=== PATIENT | male | born 1965 | race Caucasian/White ===

== ENCOUNTER 2016-10-27 14:39 | Emergency (ER) | payer SELFPAY ==
[2016-10-27 14:50] VITALS: BP 115/66; PULSE 64; RESP 16; TEMP 98; O2SAT 100
--- NOTE | 2016-10-27 15:06 | ED PDOC ---
Upper Extremity Pain/Injury Time Seen by Provider: 10/27/16 15:00 Chief Complaint (Nursing): Upper Extremity Problem/Injury Chief Complaint (Provider): Upper Extremity Problem/Injury History Per: Patient History/Exam Limitations: no limitations Onset/Duration Of Symptoms: Days (x3 days) Current Symptoms Are (Timing): Still Present Additional Complaint(s): 51 y/o male presents to the emergency department with a complaint of left shoulder pain radiating down the left arm and left rib pain on palpation and deep breaths status post fall from a 12ft ladder during work on Monday, 2016. Associated with mild dizziness. Denies cough. Past Medical History Reviewed: Historical Data, Nursing Documentation, Vital Signs Vital Signs: Last Vital Signs Temp 98.0 F 10/27/16 14:49 Pulse 64 10/27/16 14:49 Resp 16 10/27/16 14:49 BP 115/66 10/27/16 14:49 Pulse Ox 100 10/27/16 14:49 - Medical History PMH: No Chronic Diseases - Surgical History Surgical History: No Surg Hx - Family History Family History: States: Unknown Family Hx - Home Medications Home Medications: Ambulatory Orders Medication Instructions Recorded No Known Home Med 10/27/16 - Allergies Allergies/Adverse Reactions: Allergies Allergy/AdvReac Type Severity Reaction Status Date / Time No Known Allergies Allergy Verified 10/27/16 14:49 Review of Systems ROS Statement: Except As Marked, All Systems Reviewed And Found Negative Respiratory: Negative for: Cough Musculoskeletal: Positive for: Shoulder Pain (Left), Arm Pain (Left), Other ( Left rib pain) Neurological: Positive for: Dizziness (Mild) Physical Exam - Reviewed Nursing Documentation Reviewed: Yes Vital Signs Reviewed: Yes - Physical Exam Appears: Positive for: Non-toxic, No Acute Distress Head Exam: Positive for: ATRAUMATIC, NORMOCEPHALIC Skin: Positive for: Normal Color, Warm, Dry Extremity: Positive for: Normal ROM (Normal pronation and supination of the left arm. ), Other (Neurovascularly nerves intact. ). Negative for: Tenderness (No AC tenderness. No scapular, midline, C-spine, or clavicle tenderness. ) Neurologic/Psych: Positive for: Alert, Oriented - ECG O2 Sat by Pulse Oximetry: 100 (RA) Pulse Ox Interpretation: Normal Medical Decision Making Medical Decision Making: Time: 15:00 Initial impression: Possible Rib contusion Initial plan: --Ribs Left and PA Chest (RAD) --Revaluation xray: hows hiatial hernia, no visibl Fx noted to ribs. howeer due to injury from 12 ft lader and pain with inspiration will give incentive spirometer an advise to f.u with pmd PT comfortable in ED stable VS and well appearing. Scribe Attestation: Documented by Arabella Fuentes, acting as a scribe for Dalia Alicae PA-C. Provider Scribe Attestation: All medical record entries made by the Scribe were at my direction and personally dictated by me. I have reviewed the chart and agree that the record accurately reflects my personal performance of the history, physical exam, medical decision making, and the department course for this patient. I have also personally directed, reviewed, and agree with the discharge instructions and disposition. Disposition - Clinical Impression Clinical Impression: Rib contusion - Patient ED Disposition Is Patient to be Admitted: No Counseled Patient/Family Regarding: Studies Performed, Diagnosis, Need For Followup - Disposition Referrals: [facility] [Outside] [facility] [Outside] Disposition: Routine/Home Disposition Time: 16:15 Condition: STABLE Instructions: Hiatal Hernia (ED), Rib Contusion (ED) Forms: [facility] ED School/Work Excuse Print Language: FRENCH
--- NOTE | 2016-10-27 16:58 | RAD ---
PROCEDURE: Radiographs of the Chest and Left Ribs. HISTORY: pain in rib after fall injury COMPARISON: 10/30/2012.. TECHNIQUE: Frontal radiograph of the chest and multiple oblique radiographs of the left ribs were obtained. FINDINGS: LEFT RIBS: No fracture or focal lesion visualized. LUNGS: Clear. PLEURA: No pneumothorax or pleural fluid. CARDIOVASCULAR: Normal sized heart. No pulmonary vascular congestion. OTHER FINDINGS: None. IMPRESSION: Unremarkable radiographs of the chest and left ribs. No left rib fracture.
== END 2016-10-27 16:25 | disposition home or self-care (01) ==
LOC: H.ER 14:39
DX: S20.219A Contusion of unspecified front wall of thorax, initial encounter (principal); W11.XXXA Fall on and from ladder, initial encounter; Y99.0 Civilian activity done for income or pay

== ENCOUNTER 2016-11-15 10:47 | Observation (INO) | payer SELFPAY ==
[2016-11-15 11:07] VITALS: BMI 25.9
--- NOTE | 2016-11-15 13:10 | ED PDOC ---
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 He reports mild shortness of breath but denies nausea or vomit. Nothing makes it better or worse. He has never had this before. Reports pain was initially moderate and has remained moderate. Describes it as sharp. Past Medical History Reviewed: Historical Data, Nursing Documentation Vital Signs: Last Vital Signs Temp 97.8 F 11/15/16 11:07 Pulse 50 L 11/15/16 13:38 Resp 19 11/15/16 11:07 BP 129/67 11/15/16 11:07 Pulse Ox 99 11/15/16 13:18 - Medical History PMH: No Chronic Diseases - Surgical History Surgical History: No Surg Hx - Family History Family History: States: Unknown Family Hx - Social History Current smoker - smoking cessation education provided: No Alcohol: None Drugs: Denies - Home Medications Home Medications: Ambulatory Orders Medication Instructions Recorded No Known Home Med 10/27/16 - Allergies Allergies/Adverse Reactions: Allergies Allergy/AdvReac Type Severity Reaction Status Date / Time No Known Allergies Allergy Verified 10/27/16 14:49 Review of Systems ROS Statement: Except As Marked, All Systems Reviewed And Found Negative Cardiovascular: Positive for: Chest Pain Gastrointestinal: Negative for: Nausea, Vomiting Musculoskeletal: Positive for: Back Pain Physical Exam - Reviewed Nursing Documentation Reviewed: Yes Vital Signs Reviewed: Yes - Physical Exam Appears: Positive for: Well, Non-toxic, No Acute Distress Head Exam: Positive for: ATRAUMATIC, NORMAL INSPECTION, NORMOCEPHALIC Skin: Positive for: Warm, Dry Eye Exam: Positive for: PERRL, Other (Sclera are white) Neck: Positive for: Supple Cardiovascular/Chest: Positive for: Regular Rate, Rhythm Respiratory: Positive for: Normal Breath Sounds. Negative for: Rales, Rhonchi, Wheezing Gastrointestinal/Abdominal: Positive for: Normal Exam, Soft. Negative for: Tenderness Extremity: Positive for: Calf Tenderness, Swelling - Laboratory Results Result Diagrams: 11/15/16 13:30 11/15/16 13:30 - ECG ECG: Positive for: Interpreted By Me, Viewed By Me ECG Rhythm: Positive for: Sinus Bradycardia. Negative for: ST/T Changes Interpretation Of ECG: T wave inversion in V5. No ischemia. Rate: 44 O2 Sat by Pulse Oximetry: 99 (RA) Pulse Ox Interpretation: Normal - Radiology X-Ray: Interpreted by Me X-Ray Interpretation: No Acute Disease - Progress ED Course And Treament: willl admit to tele obs Re-evaluation Time: 15:30 Condition: Improved Medical Decision Making Medical Decision Makin EKG, CXR, Labs ordered. Disposition - Clinical Impression Clinical Impression: Chest pain - Patient ED Disposition Is Patient to be Admitted: Yes Counseled Patient/Family Regarding: Studies Performed, Diagnosis, Need For Followup - Disposition Disposition Time: 16:38 Condition: STABLE - Pt Status Changed To: Hospital Disposition Of: Observation - POA Present On Arrival: None Additional Comments - Additional Comments Additional Comments: Scribe Attestation Documented by Jose Manuel Banks acting as a scribe for Rohit Peralta MD. Provider Attestation All medical record entries made by the Scribe were at my direction and personally dictated by me. I have reviewed the chart and agree that the record accurately reflects my personal performance of the history, physical exam, medical decision making, and the department course for this patient. I have also personally directed, reviewed, and agree with the discharge instructions and disposition
[2016-11-15 13:55] LABS: BASO % 0.7 % (0.0-2.0); EOS # 0.5 K/uL (0.0-0.7); EOS % 6.9 % (0.0-4.0); HEMATOCRIT 45.3 % (35.0-51.0); LYMPH % 30.5 % (20.0-40.0); MEAN CELL VOLUME 90.4 fl (80.0-94.0); MEAN CORPUSCULAR HEMOGLOBIN 29.7 pg (27.0-31.0); MEAN CORPUSCULAR HGB CONC 32.8 g/dL (33.0-37.0); MONO # 0.6 K/uL (0.0-0.8); MONO % 8.8 % (0.0-10.0); NEUT # 3.5 K/uL (1.8-7.0); NEUT % 53.1 % (50.0-75.0); NRBC % 0.1 % (0.0-0.0); RED CELL DISTRIBUTION WIDTH 13.7 % (11.5-14.5); WHITE BLOOD COUNT 6.6 K/uL (4.8-10.8)
[2016-11-15 14:10] LABS: CHLORIDE 103 mmol/L (98-107)
[2016-11-15 14:11] LABS: POTASSIUM 4.4 MMOL/L (3.6-5.0); SODIUM 139 mmol/l (132-148)
[2016-11-15 14:13] LABS: ALB/GLOB RATIO 1.4 (1.0-2.1); ALKALINE PHOSPHATASE 57 U/L (38-126); ALT/SGPT 32 U/L (21-72); AMYLASE 127 U/L (30-110); AST/SGOT 24 U/L (17-59); BILIRUBIN,TOTAL 0.6 mg/dl (0.2-1.3); BLOOD UREA NITROGEN 16 mg/dl (9-20); CALCIUM 9.3 mg/dL (8.4-10.2); CARBON DIOXIDE 27 mmol/L (22-30); GFR AFRICAN-AMERICAN > 60; GLUCOSE,RANDOM 85 mg/dL (75-110)
[2016-11-15 14:14] LABS: LIPASE 131 U/L (23-300)
[2016-11-15 14:24] LABS: PARTIAL THROMBOPLASTIN TIME 28.5 SECONDS (23.3-32.5)
[2016-11-15] MEDS ORDERED: Iodixanol 320 MG/ML 100 ML BOTTLE IV ONE (15:12)
[2016-11-15] MEDS ORDERED: Sodium Chloride 0.9% 50 ML IV ONE (15:12)
--- NOTE | 2016-11-15 15:45 | RAD ---
PROCEDURE: CHEST RADIOGRAPH, 1 VIEW HISTORY: Abdominal pain COMPARISON: 10/27/2016 FINDINGS: LUNGS: The lungs are clear. PLEURA: No pneumothorax or pleural fluid seen. CARDIOVASCULAR: Normal. OSSEOUS STRUCTURES: No significant abnormalities. VISUALIZED UPPER ABDOMEN: Normal. OTHER FINDINGS: None. IMPRESSION: No active pulmonary disease.
--- NOTE | 2016-11-15 15:57 | CT ---
PROCEDURE: CT Chest with contrast (Pulmonary Angiogram) HISTORY: chest pain COMPARISON: None available. TECHNIQUE: Axial computed tomography images were obtained of the chest in the pulmonary arterial phase of enhancement. Coronal and sagittal reformatted images were created and reviewed. This CT exam was performed using one or more of the following dose reduction techniques: Automated exposure control, adjustment of the mA and/or kV according to patient size, and/or use of iterative reconstruction technique. Intravenous contrast dose: 100 cc of Omnipaque 300 Radiation dose: Total exam DLP = 361 mGy-cm. FINDINGS: PULMONARY ARTERIES: Unremarkable. No pulmonary embolism. AORTA: No acute findings. No thoracic aortic aneurysm. LUNGS: Unremarkable. No nodule, mass or pulmonary consolidation. PLEURAL SPACES: Unremarkable. No effusion or pneuomothorax. HEART: Unremarkable. No cardiomegaly. No significant pericardial effusion. LYMPH NODES: No lymphadenopathy. BONES, CHEST WALL: Unremarkable. No fracture or destructive lesion OTHER FINDINGS: Unremarkable. IMPRESSION: Unremarkable CT pulmonary angiogram. No pulmonary embolus.
--- NOTE | 2016-11-15 16:01 | CARD ---
APPROVED REPORT EKG Measurement Heart [id number] [place] 168P71 [id number] <Conclusion> Sinus bradycardia Possible Left atrial enlargement Left axis deviation Incomplete right bundle branch block Nonspecific T wave abnormality Abnormal ECG
--- NOTE | 2016-11-15 17:11 | CP.PCM.HP ---
History of Present Illness - History of Present Illness History of Present Illness: Hospitalist Admission H&P (Patient was seen and examined at 4:15 PM 11/15/16 ER Bed 5B with Nurse Ariela who translated [place] as [place] Translation service could not be connected to) PMD: None CODE STATUS: FULL CODE. NO living will/advance directive. Brother Anthony Currie [phone] has been designated by patient as his Health Care Proxy. CHIEF COMPLAINT: Chest Pain 51 year old male who presents today with a chief complaint of chest pain. Three days ago when patient was relaxing outside at his home he started to feel a sharp right mid chest pain radiating to his back associated with shortness of breath with NO radiation to his upper extremities and NO associated paresthesias. It last 1 hour and went away on its own. However the pain has been coming and going since then. Usually occurs with activity with moving around for some time and is relieved while he lays down. As the pain kept reoccurring, he took a bus part of the way here and then walked the rest of way. As he was walking here the pain reoccurred and rediated to the left shoulder. Currently upon FULL ROS the chest pain as described above is present with radiation to the left shoulder. SOB is not present. 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, (+) Tobacco 1/2 pack a day for past 10-15 years, (+) Alcohol 10-15 beers on Fridays and Saturdays, (+) Marijuana every other day (with last use this morning before coming to the ER) Family Hx: Mom (Gallbladder problems), Dad (HTN, Hyperlipidemia), NO other family hx of CAD/IA Present on Admission - Present on Admission Any Indicators Present on Admission: Yes History of DVT/PE: No History of Uncontrolled Diabetes: No Urinary Catheter: No Decubitus Ulcer Present: No Review of Systems - Review of Systems Review of Systems: Please see HPI Past Patient History - Past Medical History & Family History Pertinent Family History: Please see HPI - Past Social History Alcohol: None Drugs: Denies - PSYCHIATRIC Hx Substance Use: No - SURGICAL HISTORY Hx Surgeries: No - ANESTHESIA Hx Anesthesia: No Meds Allergies/Adverse Reactions: Allergies Allergy/AdvReac Type Severity Reaction Status Date / Time No Known Allergies Allergy Verified 10/27/16 14:49 Physical Exam - Constitutional Appears: Non-toxic, No Acute Distress - Head Exam Head Exam: ATRAUMATIC, NORMAL INSPECTION, NORMOCEPHALIC - Eye Exam Eye Exam: EOMI, Normal appearance, PERRL Pupil Exam: NORMAL ACCOMODATION, PERRL - ENT Exam ENT Exam: Mucous Membranes Moist, Normal Exam, Normal External Ear Exam, Normal Oropharynx - Neck Exam Neck exam: Positive for: Normal Inspection Additional comments: NO cervical/supraclavicular/submandibular lymphadenopathy NO thyromegaly - Respiratory Exam Respiratory Exam: Clear to Auscultation Bilateral, NORMAL BREATHING PATTERN Additional comments: CTA B/L NO R/R/W - Cardiovascular Exam Cardiovascular Exam: REGULAR RHYTHM, +S1, +S2 Additional comments: NS1 and NS2, NO M/R/G - GI/Abdominal Exam Additional comments: BS x 4, Soft, ND, (+) RUQ Pain and RLQ Pain with palpation (mild discomfort) but NO guarding/rebound tenderness, NO HSM - Extremities Exam Extremities exam: Positive for: normal inspection - Neurological Exam Neurological exam: Alert, CN II-XII Intact, Oriented x3 Results - Vital Signs Recent Vital Signs: Last Vital Signs Temp 97.8 F 11/15/16 11:07 Pulse 44 L 11/15/16 16:38 Resp 19 11/15/16 11:07 BP 129/67 11/15/16 11:07 Pulse Ox 99 11/15/16 16:38 - Labs Result Diagrams: 11/15/16 13:30 11/15/16 13:30 Assessment & Plan (1) Atypical chest pain Assessment and Plan: CT Angio Chest: NO PE otherwise unremarkable Chest X Ray: NO active disease EKG shows Left [place] Deviation and Incomplete RBBB Observe in the Telemetry Unit F/U Troponin at 7:30 PM and 1:30 AM F/U EKG at 7:30 PM and 1:30 AM F/U TSH, Free T4, and Lipids 11/16/16 F/U further recommendations from Cardiology Consult Dr. Puente Status: Acute (2) Abdominal pain Assessment and Plan: F/U STAT Abdominal U/S NO Psoas or Magallanes's Sign on Exam: patient is hungry and asking for food and there is NO n/v Status: Acute (3) Prophylactic measure Assessment and Plan: Protonix 40 mg PO 1x/day for GI Prophylaxis Bilateral SCDs for DVT Risk Score of 1 Heart Healthy Diet Status: Acute
[2016-11-15 17:30] LABS: RBC URINE 1 /hpf (0-3); URINE BILIRUBIN NEGATIVE (NEGATIVE); URINE BLOOD NEGATIVE (NEGATIVE); URINE COLOR YELLOW (YELLOW); URINE GLUCOSE (UA) NEG (Normal); URINE KETONE NEGATIVE (NEGATIVE); URINE LEUKOCYTE ESTERASE NEG Leu/uL (Negative); URINE PROTEIN NEGATIVE (NEGATIVE); URINE UROBILINOGEN 0.2-1.0 mg/dL (0.2-1.0); WBC URINE 1 /hpf (0-5)
[2016-11-15] MEDS ORDERED: Pantoprazole 40 mg EC Tab PO ONE (17:56)
[2016-11-15] MEDS: Pantoprazole 40 mg EC Tab PO SCH (18:41)
--- NOTE | 2016-11-15 18:53 | US ---
HISTORY: RUQ and RLQ Pain with palpation COMPARISON: Abdominal ultrasound performed 10/30/12 TECHNIQUE: Sonographic evaluation of the abdomen. FINDINGS: Limited study. LIVER: Measures 14.1 cm in sagittal dimension and appears within normal limits of size, shape, and echotexture. No focal hepatic mass identified. The main portal vein appears patent with normal directional flow. No intrahepatic bile duct dilatation. GALLBLADDER: No gallstones. No gallbladder wall thickening. Negative sonographic Magallanes's sign as assessed by the customer experience manager. COMMON BILE DUCT: Measures 3 mm. PANCREAS: Not well visualized. RIGHT KIDNEY: Measures 10.4 x 6.0 x 6.0cm. No obstructing calculus or hydronephrosis identified. Anechoic avascular lesions (at least 2) consistent with cysts measuring up to 1.7 cm . Sub cm echogenic focus, possibly calcification. LEFT KIDNEY: Measures 12.6 x 6.7 x 4.7cm. No obstructing calculus or hydronephrosis identified. 1.5 cm upper pole renal anechoic avascular lesion consistent with cyst. SPLEEN: Measures approximately 12.0 x 4.4 x 4.3 cm. AORTA: Limited views appear unremarkable. IVC: Limited views appear unremarkable. OTHER FINDINGS: None. IMPRESSION: Bilateral renal cysts. Sub cm echogenic focus within the right kidney, possibly calcification. No hydronephrosis bilaterally.
[2016-11-16 05:55] LABS: BASO # 0.1 K/uL (0.0-0.2); BASO % 0.8 % (0.0-2.0); EOS # 0.6 K/uL (0.0-0.7); EOS % 7.4 % (0.0-4.0); HEMATOCRIT 47.4 % (35.0-51.0); LYMPH # 2.4 K/uL (1.0-4.3); LYMPH % 28.6 % (20.0-40.0); MEAN CELL VOLUME 90.6 fl (80.0-94.0); MEAN PLATELET VOLUME 7.8 fl (7.2-11.7); MONO # 0.6 K/uL (0.0-0.8); MONO % 7.7 % (0.0-10.0); NEUT # 4.6 K/uL (1.8-7.0); NEUT % 55.5 % (50.0-75.0); RED CELL DISTRIBUTION WIDTH 13.5 % (11.5-14.5); WHITE BLOOD COUNT 8.3 K/uL (4.8-10.8)
[2016-11-16 06:20] LABS: BLOOD UREA NITROGEN 16 mg/dl (9-20); CALCIUM 9.7 mg/dL (8.4-10.2); CARBON DIOXIDE 26 mmol/L (22-30); CHLORIDE 101 mmol/L (98-107); CHOLESTEROL 239 mg/dL (0-199); GFR AFRICAN-AMERICAN > 60; GLUCOSE,RANDOM 108 mg/dL (75-110); POTASSIUM 4.3 MMOL/L (3.6-5.0); SODIUM 138 mmol/l (132-148)
[2016-11-16 06:34] LABS: T4 5.32 ug/dl (5.5-11.0)
[2016-11-16 06:47] LABS: THYROID STIMULATING HORMONE 3.84 mIU/ML (0.46-4.68)
--- NOTE | 2016-11-16 07:48 | CARD ---
APPROVED REPORT EKG Measurement Heart [id number] <Conclusion> Sinus bradycardia Left axis deviation Nonspecific T wave abnormality Abnormal ECG
--- NOTE | 2016-11-16 08:07 | CARD ---
APPROVED REPORT EKG Measurement Heart [id number] [place] 170P56 [id number] <Conclusion> Sinus bradycardia Left axis deviation T wave abnormality, consider lateral ischemia Abnormal ECG
[2016-11-16 08:27] VITALS: RESP 16; TEMP 98
[2016-11-16] MEDS ORDERED: Pantoprazole 40 mg EC Tab PO ONE (09:40)
[2016-11-16] MEDS: Pantoprazole 40 mg EC Tab PO SCH (09:47)
--- NOTE | 2016-11-16 12:10 | CP.PCM.CON ---
History of Present Illness - History of Present Illness History of Present Illness: 51 y/o h/m admitted with chest pain Pt claims that 3 days ago her developed a right sided sharp chest pain and back pain pain has been constant / worse with movement and deep inspiration Pain is reproducible with palpation EKG: normal Troponin: neg Past Patient History - Past Social History Alcohol: None Drugs: Denies - CARDIAC Hx Cardiac Disorders: No - PSYCHIATRIC Hx Substance Use: No - SURGICAL HISTORY Hx Surgeries: No - ANESTHESIA Hx Anesthesia: No Meds Allergies/Adverse Reactions: Allergies Allergy/AdvReac Type Severity Reaction Status Date / Time No Known Allergies Allergy Verified 10/27/16 14:49 - Medications Medications: Current Medications Pantoprazole Sodium (Protonix Ec Tab) 40 mg PO DAILY FOUZIA Last Admin: 11/16/16 09:47 Dose: 40 mg Results - Vital Signs Recent Vital Signs: Last Vital Signs Temp 98 F 11/16/16 08:26 Pulse 89 11/16/16 08:26 Resp 16 11/16/16 08:26 BP 108/65 11/16/16 08:26 Pulse Ox 100 11/16/16 08:26 - Labs Result Diagrams: 11/16/16 05:38 11/16/16 05:38 Labs: Laboratory Results - last 24 hr 11/15/16 11/15/16 11/15/16 17:12 17:12 20:05 WBC RBC Hgb Hct MCV MCH MCHC RDW Plt Count MPV Neut % (Auto) Lymph % (Auto) [place] % (Auto) Eos % (Auto) Baso % (Auto) Neut # Lymph # [place] # Eos # Baso # Sodium Potassium Chloride Carbon Dioxide Anion Gap BUN Creatinine Est GFR ( Amer) Est GFR (Non-Af Amer) Random Glucose Calcium Troponin I < 0.0120 Triglycerides Cholesterol LDL Cholesterol Direct HDL Cholesterol Thyroxine (T4) TSH 3rd Generation Urine Color Yellow Urine Clarity Clear Urine pH 7.0 Ur Specific [place] 1.005 Urine Protein Negative Urine Glucose (UA) Neg Urine Ketones Negative Urine Blood Negative Urine Nitrate Negative Urine Bilirubin Negative Urine Urobilinogen 0.2-1.0 Ur Leukocyte Esterase Neg Urine RBC (Auto) 1 Urine Microscopic WBC 1 Ur Squamous Epith Cells < 1 Urine Opiates Screen Negative Urine Methadone Screen Negative Ur Barbiturates Screen Negative Ur Phencyclidine Scrn Negative Ur Amphetamines Screen Negative U Benzodiazepines Scrn Negative U Oth Cocaine Metabols Positive H U Cannabinoids Screen Positive H 11/16/16 11/16/16 11/16/16 01:44 05:38 05:38 WBC 8.3 RBC 5.24 Hgb 15.2 Hct 47.4 MCV 90.6 MCH 29.0 MCHC 32.0 L RDW 13.5 Plt Count 264 MPV 7.8 Neut % (Auto) 55.5 Lymph % (Auto) 28.6 [place] % (Auto) 7.7 Eos % (Auto) 7.4 H Baso % (Auto) 0.8 Neut # 4.6 Lymph # 2.4 [place] # 0.6 Eos # 0.6 Baso # 0.1 Sodium 138 Potassium 4.3 Chloride 101 Carbon Dioxide 26 Anion Gap 15 BUN 16 Creatinine 0.8 Est GFR ( Amer) > 60 Est GFR (Non-Af Amer) > 60 Random Glucose 108 Calcium 9.7 Troponin I < 0.0120 Triglycerides 194 H Cholesterol 239 H LDL Cholesterol Direct 141 H HDL Cholesterol 61 Thyroxine (T4) 5.32 L TSH 3rd Generation 3.84 Urine Color Urine Clarity Urine pH Ur Specific [place] Urine Protein Urine Glucose (UA) Urine Ketones Urine Blood Urine Nitrate Urine Bilirubin Urine Urobilinogen Ur Leukocyte Esterase Urine RBC (Auto) Urine Microscopic WBC Ur Squamous Epith Cells Urine Opiates Screen Urine Methadone Screen Ur Barbiturates Screen Ur Phencyclidine Scrn Ur Amphetamines Screen U Benzodiazepines Scrn U Oth Cocaine Metabols U Cannabinoids Screen Assessment & Plan (1) Atypical chest pain Assessment and Plan: Pt's chest pain is right sided and reproducible with inspiration and palpation Pt may be discharged Status: Chronic
[2016-11-16 12:21] VITALS: PULSE 76
--- NOTE | 2016-11-16 12:52 | CP.PCM.DIS ---
Provider - Provider Date of Admission: 11/15/16 16:25 Attending physician: Deniz Edwards MD Primary care physician: Does Not have one Consults: Cardiology Dr. Lloyd Time Spent in preparation of Discharge (in minutes): 40 Diagnosis - Discharge Diagnosis (1) Atypical chest pain Status: Chronic (2) Abdominal pain Status: Acute (3) Prophylactic measure Status: Acute Hospital Course - Lab Results Lab Results: Most Recent Lab Values WBC 8.3 K/uL (4.8-10.8) 11/16/16 05:38 RBC 5.24 Mil/uL (4.40-5.90) 11/16/16 05:38 Hgb 15.2 g/dL (12.0-18.0) 11/16/16 05:38 Hct 47.4 % (35.0-51.0) 11/16/16 05:38 MCV 90.6 fl (80.0-94.0) 11/16/16 05:38 MCH 29.0 pg (27.0-31.0) 11/16/16 05:38 MCHC 32.0 g/dL (33.0-37.0) L 11/16/16 05:38 RDW 13.5 % (11.5-14.5) 11/16/16 05:38 Plt Count 264 K/uL (130-400) 11/16/16 05:38 MPV 7.8 fl (7.2-11.7) 11/16/16 05:38 Neut % (Auto) 55.5 % (50.0-75.0) 11/16/16 05:38 Lymph % (Auto) 28.6 % (20.0-40.0) 11/16/16 05:38 [place] % (Auto) 7.7 % (0.0-10.0) 11/16/16 05:38 Eos % (Auto) 7.4 % (0.0-4.0) H 11/16/16 05:38 Baso % (Auto) 0.8 % (0.0-2.0) 11/16/16 05:38 Neut # 4.6 K/uL (1.8-7.0) 11/16/16 05:38 Lymph # 2.4 K/uL (1.0-4.3) 11/16/16 05:38 [place] # 0.6 K/uL (0.0-0.8) 11/16/16 05:38 Eos # 0.6 K/uL (0.0-0.7) 11/16/16 05:38 Baso # 0.1 K/uL (0.0-0.2) 11/16/16 05:38 PT 10.7 SECONDS (9.6-11.2) 11/15/16 13:30 INR 1.03 (0.92-1.08) 11/15/16 13:30 APTT 28.5 SECONDS (23.3-32.5) 11/15/16 13:30 D-Dimer, Quantitative 0.19 mg/L FEU (0-0.50) 11/15/16 13:30 Sodium 138 mmol/l (132-148) 11/16/16 05:38 Potassium 4.3 MMOL/L (3.6-5.0) 11/16/16 05:38 Chloride 101 mmol/L (98-107) 11/16/16 05:38 Carbon Dioxide 26 mmol/L (22-30) 11/16/16 05:38 Anion Gap 15 (10-20) 11/16/16 05:38 BUN 16 mg/dl (9-20) 11/16/16 05:38 Creatinine 0.8 mg/dL (0.8-1.5) 11/16/16 05:38 Est GFR ( Amer) > 60 11/16/16 05:38 Est GFR (Non-Af Amer) > 60 11/16/16 05:38 Random Glucose 108 mg/dL (75-110) 11/16/16 05:38 Calcium 9.7 mg/dL (8.4-10.2) 11/16/16 05:38 Total Bilirubin 0.6 mg/dl (0.2-1.3) 11/15/16 13:30 AST 24 U/L (17-59) 11/15/16 13:30 ALT 32 U/L (21-72) 11/15/16 13:30 Alkaline Phosphatase 57 U/L (38-126) 11/15/16 13:30 Troponin I < 0.0120 ng/mL (0.00-0.120) 11/16/16 01:44 Total Protein 8.0 G/DL (6.3-8.2) 11/15/16 13:30 Albumin 4.7 g/dL (3.5-5.0) 11/15/16 13:30 Globulin 3.3 gm/dL (2.2-3.9) 11/15/16 13:30 Albumin/Globulin Ratio 1.4 (1.0-2.1) 11/15/16 13:30 Triglycerides 194 mg/DL (0-149) H 11/16/16 05:38 Cholesterol 239 mg/dL (0-199) H 11/16/16 05:38 LDL Cholesterol Direct 141 mg/dL (0-129) H 11/16/16 05:38 HDL Cholesterol 61 MG/DL (30-70) 11/16/16 05:38 Amylase 127 U/L (30-110) H 11/15/16 13:30 Lipase 131 U/L (23-300) 11/15/16 13:30 Thyroxine (T4) 5.32 ug/dl (5.5-11.0) L 11/16/16 05:38 TSH 3rd Generation 3.84 mIU/ML (0.46-4.68) 11/16/16 05:38 Urine Color Yellow (YELLOW) 11/15/16 17:12 Urine Clarity Clear (Clear) 11/15/16 17:12 Urine pH 7.0 (5.0-8.0) 11/15/16 17:12 Ur Specific [place] 1.005 (1.003-1.030) 11/15/16 17:12 Urine Protein Negative mg/dL (NEGATIVE) 11/15/16 17:12 Urine Glucose (UA) Neg mg/dL (Normal) 11/15/16 17:12 Urine Ketones Negative mg/dL (NEGATIVE) 11/15/16 17:12 Urine Blood Negative (NEGATIVE) 11/15/16 17:12 Urine Nitrate Negative (NEGATIVE) 11/15/16 17:12 Urine Bilirubin Negative (NEGATIVE) 11/15/16 17:12 Urine Urobilinogen 0.2-1.0 mg/dL (0.2-1.0) 11/15/16 17:12 Ur Leukocyte Esterase Neg Cam/uL (Negative) 11/15/16 17:12 Urine RBC (Auto) 1 /hpf (0-3) 11/15/16 17:12 Urine Microscopic WBC 1 /hpf (0-5) 11/15/16 17:12 Ur Squamous Epith Cells < 1 /hpf (0-5) 11/15/16 17:12 Urine Opiates Screen Negative (NEGATIVE) 11/15/16 17:12 Urine Methadone Screen Negative (NEGATIVE) 11/15/16 17:12 Ur Barbiturates Screen Negative (NEGATIVE) 11/15/16 17:12 Ur Phencyclidine Scrn Negative (NEGATIVE) 11/15/16 17:12 Ur Amphetamines Screen Negative (NEGATIVE) 11/15/16 17:12 U Benzodiazepines Scrn Negative (NEGATIVE) 11/15/16 17:12 U Oth Cocaine Metabols Positive (NEGATIVE) H 11/15/16 17:12 U Cannabinoids Screen Positive (NEGATIVE) H 11/15/16 17:12 - Hospital Course Hospital Course: Hospitalist Discharge Summary (Patient was seen and examined at 12:30 PM ER Bed 5B with Nurse Ariela who translated Somali as [place] Translation service was not functioning) 51 year old male who presented 11/15/16 with a chief complaint of chest pain. Three days prior to presentation when patient was relaxing outside at his home he started to feel a sharp right mid chest pain radiating to his back associated with shortness of breath with NO radiation to his upper extremities and NO associated paresthesias. It lasted 1 hour and went away on its own. However the pain has been coming and going since then. Usually occurs with activity with moving around for some time and is relieved while he lays down. As the pain kept reoccurring, he took a bus part of the way here and then walked the rest of way. As he was walking here the pain reoccurred and rediated to the left shoulder. Chest X Ray and CT Angio Chest did not show any acute disease. EKG showed NSR between 46 and 51 beats per minute. Troponin x 3 was negative. Abdominal U/S showed renal cysts. His pain is reproducible when palpating the anterior 3rd intercostal space on the right and there was no radiation of the pain at this time.He was evaluated by Cardiology and cleared for discharge. Currently upon FULL ROS the chest pain is present with palpation of the right 3rd intercostal space without radiation. SOB is not present. NO dysphagia/ odynophagia, RUQ Pain mild has resolved, NO n/v/d/c (NO black/bloody stools), NO burning/pain with urination, NO lightheadedness/dizziness, NO headache, NO new changes in hearing/ear pain, (+) Blurriness of vision for the past week, NO paresthesias Physical Exam - Constitutional Appears: Non-toxic, No Acute Distress - Head Exam Head Exam: ATRAUMATIC, NORMAL INSPECTION, NORMOCEPHALIC - Eye Exam Eye Exam: EOMI, Normal appearance, PERRL Pupil Exam: NORMAL ACCOMODATION, PERRL - ENT Exam ENT Exam: Mucous Membranes Moist, Normal Exam, Normal External Ear Exam, Normal Oropharynx - Neck Exam Neck exam: Positive for: Normal Inspection Additional comments: NO cervical/supraclavicular/submandibular lymphadenopathy NO thyromegaly - Respiratory Exam Respiratory Exam: Clear to Auscultation Bilateral, NORMAL BREATHING PATTERN Additional comments: CTA B/L NO R/R/W - Cardiovascular Exam Cardiovascular Exam: REGULAR RHYTHM, +S1, +S2 Additional comments: NS1 and NS2, NO M/R/G - GI/Abdominal Exam Additional comments: BS x 4, Soft, ND, RUQ Pain and RLQ Pain with palpation is NO LONGER PRESENT on today's exam but NO guarding/rebound tenderness, NO HSM - Extremities Exam Extremities exam: Positive for: normal inspection - Neurological Exam Neurological exam: Alert, CN II-XII Intact, Oriented x3 The following instructions were explained to patient with the help of Nurse Titus: 1). He must follow up with the [facility] within 7 days by calling [phone] for an appointment. It is located at [address] [place] [address] in [place], [place]. The doctors there will be your primary care physicians to help coordinate your [facility] care. 2). Through the [facility] you will need further workup of the chest pain as well as repeat Ultrasound of your Kidneys in 6 months to monitor the cysts that were found there. 3). You must stay away from Marijuana and Cocaine (this will likely kill you). Deniz Edwards D.O. Discharge Exam - Head Exam Head Exam: ATRAUMATIC, NORMAL INSPECTION, NORMOCEPHALIC Discharge Plan - Follow Up Plan Condition: STABLE Disposition: HOME/ ROUTINE Instructions: Acute Abdominal Pain (DC), Acute Abdominal Pain (GEN)
[2016-11-16 14:01] VITALS: BP 126/75; O2SAT 99
--- NOTE | 2016-11-17 06:37 | CARD ---
APPROVED REPORT EKG Measurement Heart [id number] <Conclusion> Marked sinus bradycardia Possible Left atrial enlargement Incomplete right bundle branch block Nonspecific T wave abnormality Abnormal ECG
--- NOTE | 2016-11-17 06:37 | CARD ---
APPROVED REPORT EKG Measurement Heart [id number] AL [id number] <Conclusion> Sinus bradycardia Left axis deviation Nonspecific T wave abnormality Abnormal ECG
== END 2016-11-16 14:01 | disposition home or self-care (01) ==
LOC: H.ER 10:47 → H.ERHOLD 16:25
PROVIDERS: ADMIT Family Medicine; ATTEND Family Medicine
DX: R07.89 Other chest pain (principal); R10.9 Unspecified abdominal pain; N28.1 Cyst of kidney, acquired; I45.10 Unspecified right bundle-branch block
CPT/HCPCS: 71010; 71275; 76700; 80048; 80053; 80061; 81003; 82150; 83690; 84436; 84443; 84484; 85025; 85378; 85610; 85730; 93005; 99285; G0378; G0480; Q9967

== ENCOUNTER 2018-07-02 08:40 | Emergency (ER) | payer MEDICAID ==
[2018-07-02 08:48] VITALS: BMI 26.4
[2018-07-02] MEDS ORDERED: Naproxen 500 MG TAB PO STA (09:07)
--- NOTE | 2018-07-02 09:17 | ED PDOC ---
HPI: Headache Time Seen by Provider: 07/02/18 08:57 Chief Complaint (Nursing): Chest Pain Chief Complaint (Provider): Headache History Per: Patient History/Exam Limitations: no limitations Onset/Duration Of Symptoms: Days (x3) Current Symptoms Are (Timing): Still Present Additional Complaint(s): 53 year old male with no past medical history who is presenting to the ED for evaluation of right sided headache onset 3 days ago. Patient states that the headache is not associated with trauma and denies any fevers, dizziness, neck pain/stiffness, weakness or parestesias. He offers no other medical complaints at this time. PMD: none provided Past Medical History Reviewed: Historical Data, Nursing Documentation, Vital Signs Vital Signs: Last Vital Signs Temp 97.3 F L 07/02/18 08:48 Pulse 60 07/02/18 08:48 Resp 18 07/02/18 08:48 BP 129/80 07/02/18 08:48 Pulse Ox 98 07/02/18 08:48 - Medical History PMH: No Chronic Diseases - Surgical History Other surgeries: "bone to front of face" - Family History Family History: States: Unknown Family Hx - Social History Current smoker - smoking cessation education provided: Yes Alcohol: None Drugs: Denies - Home Medications Home Medications: Ambulatory Orders Medication Instructions Recorded No Known Home Med 10/27/16 - Allergies Allergies/Adverse Reactions: Allergies Allergy/AdvReac Type Severity Reaction Status Date / Time No Known Allergies Allergy Verified 07/02/18 08:57 Review of Systems ROS Statement: Except As Marked, All Systems Reviewed And Found Negative Constitutional: Negative for: Fever Musculoskeletal: Negative for: Neck Pain Neurological: Positive for: Headache. Negative for: Weakness, Dizziness, Other (paresthesias) Physical Exam - Reviewed Nursing Documentation Reviewed: Yes Vital Signs Reviewed: Yes - Physical Exam Appears: Positive for: Non-toxic, No Acute Distress Head Exam: Positive for: ATRAUMATIC, NORMAL INSPECTION, NORMOCEPHALIC Skin: Positive for: Normal Color, Warm, DRY Eye Exam: Positive for: EOMI, Normal appearance, PERRL ENT: Positive for: Normal ENT Inspection Neck: Positive for: Normal, Painless ROM, Supple Cardiovascular/Chest: Positive for: Regular Rate, Rhythm. Negative for: Murmur Respiratory: Positive for: Normal Breath Sounds. Negative for: Respiratory Distress Gastrointestinal/Abdominal: Positive for: Normal Exam, Soft. Negative for: Tenderness Extremity: Positive for: Normal ROM. Negative for: Deformity, Swelling Neurologic/Psych: Positive for: Alert, Oriented (x3). Negative for: Motor/Sensory Deficits, Other (focal deficits) - Laboratory Results Result Diagrams: 07/02/18 10:50 07/02/18 10:50 - ECG O2 Sat by Pulse Oximetry: 98 (RA) Pulse Ox Interpretation: Normal Medical Decision Making Medical Decision Making: Time: 9:07 Assessment: right sided headache --Patient states he does not have frequent headaches in past --Will image and treat with naproxen to rule out intra cranial bleed Plan: --CT Head --EKG --Naproxen 500 mg PO 10:[address] as possible neoplasm in right hemisphere with compression of ventricle and midline shift discussed with neurologist Dr. Boyle recommends MRI and admission. Will contact neurosurgery for their assessment. 10:[address] Arita, neurosurgeon, who recommends Decadron IV as well as MRI and will see consult on admission. 15:00 Called transfer center at [facility] but no ICU beds available and they are on divert and can't accept transfer. Will call [place] transfer center. Scribe Attestation: Documented by Cathi Hernandez, acting as a scribe for Benny Mae MD. Provider Scribe Attestation: All medical record entries made by the Scribe were at my direction and personally dictated by me. I have reviewed the chart and agree that the record accurately reflects my personal performance of the history, physical exam, medical decision making, and the department course for this patient. I have also personally directed, reviewed, and agree with the discharge instructions and disposition. Disposition - Clinical Impression Clinical Impression: Brain mass - Patient ED Disposition Is Patient to be Admitted: No - Disposition Disposition: Other Institution Disposition Time: 15:55 Condition: FAIR Forms: [facility] (Jamaican)
[2018-07-02] MEDS ORDERED: Naproxen 500 MG TAB PO ONE (09:50)
--- NOTE | 2018-07-02 09:58 | CT ---
Date of service: 07/02/2018 PROCEDURE: CT HEAD WITHOUT CONTRAST. HISTORY: r/o bleed COMPARISON: None available. TECHNIQUE: Axial computed tomography images were obtained through the head/brain without intravenous contrast. Radiation dose: Total exam DLP = 0.0 mGy-cm. This CT exam was performed using one or more of the following dose reduction techniques: Automated exposure control, adjustment of the mA and/or kV according to patient size, and/or use of iterative reconstruction technique. FINDINGS: HEMORRHAGE: No intracranial hemorrhage. BRAIN: There is a moderate sized lucency identified at the right frontotemporal distribution measuring 3.1 x 3.3 cm (transverse by anteroposterior dimensions) affecting extensive vasogenic edema resulting in midline shift to the left of approximately 1.0 cm. Local sulci are effaced as well as the right sylvian fissure. Basilar cisterns remain patent although mass effect is exerted immediately anterior to the upper jody. No similar findings at the left cerebral hemisphere. Two tiny chronic lacunes are seen at the left jody/cerebellar peduncle. No suspicious extra-axial fluid collection. VENTRICLES: Right lateral ventricle is nearly completely effaced by mass effect with right frontal horn shifted laterally toward the left. No hydrocephalus pattern appreciable at this time. CALVARIUM: Unremarkable. PARANASAL SINUSES: Unremarkable as visualized. No significant inflammatory changes. MASTOID AIR CELLS: Unremarkable as visualized. No inflammatory changes. OTHER FINDINGS: None. IMPRESSION: 3.3 cm cystic lesion at the right frontotemporal distribution exerting 1.0 cm leftward midline shift, effacing the right sylvian fissure and right lateral ventricle and majority of sulci at the right cerebral hemisphere suspicious for infectious etiology though neoplasm is not excluded. Follow-up MRI with and without intravenous gadolinium is recommended for added characterization. Prominent vasogenic edema is related to this lesion. Chronic lacunes inferior left jody/left cerebellar peduncle. Findings discussed with Dr. Mae with written down read back verification 07/02/2018 9:53 a.m..
[2018-07-02] MEDS ORDERED: Dexamethasone 10 MG in Sodium Chloride 0.9% 50 ML IVPB STA (10:09)
[2018-07-02 11:10] LABS: BASO # 0.1 K/uL (0.0-0.2); BASO % 0.7 % (0.0-2.0); EOS # 0.7 K/uL (0.0-0.7); EOS % 7.6 % (0.0-4.0); HEMOGLOBIN 14.4 g/dL (12.0-18.0); LYMPH # 1.7 K/uL (1.0-4.3); LYMPH % 17.3 % (20.0-40.0); MEAN CELL VOLUME 93.2 fl (80.0-94.0); MEAN CORPUSCULAR HEMOGLOBIN 30.2 pg (27.0-31.0); MEAN CORPUSCULAR HGB CONC 32.3 g/dL (33.0-37.0); MONO # 0.7 K/uL (0.0-0.8); MONO % 6.8 % (0.0-10.0); NEUT # 6.6 K/uL (1.8-7.0); NEUT % 67.6 % (50.0-75.0); NRBC % 0.2 % (0.0-0.0); RBC 4.79 Mil/uL (4.40-5.90); RED CELL DISTRIBUTION WIDTH 13.2 % (11.5-14.5); WHITE BLOOD COUNT 9.8 K/uL (4.8-10.8)
[2018-07-02 11:18] LABS: ALB/GLOB RATIO 1.3 (1.0-2.1); ALBUMIN 4.4 g/dL (3.5-5.0); ALT/SGPT 30 U/L (21-72); AST/SGOT 14 U/L (17-59); BLOOD UREA NITROGEN 11 mg/dl (9-20); CALCIUM 9.1 mg/dL (8.4-10.2); GFR NON-AFRICAN AMERICAN > 60
[2018-07-02 12:03] LABS: INR 1.1; PROTHROMBIN TIME 12.5 Seconds (9.8-13.1)
[2018-07-02] MEDS ORDERED: Gadodiamide 287 MG/ML VIAL (15ML) IV ONE (12:03)
[2018-07-02 12:55] VITALS: TEMP 98.1
--- NOTE | 2018-07-02 13:14 | CP.PCM.PN ---
Subjective - Date & Time of Evaluation Date of Evaluation: 07/02/18 Time of Evaluation: 13:10 - Subjective Subjective: reviewed MRI and CT Large cystic lesion in right motor strip could be cystocarcosis but due to mass effect should be removed This would be safest for patient if done with neuro navigation due to the proximity of the motor strip This modality is not available at any [facility] Suggest transfer to facility that could safely remove this mass with least risk Objective - Vital Signs/Intake and Output Vital Signs (last 24 hours): Temp Pulse Resp BP Pulse Ox 98.1 F 60 20 110/72 98 07/02/18 12:54 07/02/18 12:54 07/02/18 12:54 07/02/18 12:54 07/02/18 12:54 - Labs Labs: 07/02/18 10:50 07/02/18 10:50 PT 12.5 Seconds (9.8-13.1) 07/02/18 10:50 INR 1.1 07/02/18 10:50
--- NOTE | 2018-07-02 13:42 | MRI ---
Date of service: 07/02/2018 PROCEDURE: MRI BRAIN WITH AND WITHOUT CONTRAST HISTORY: Abnormal CT COMPARISON: Unenhanced head CT 07/02/2018. TECHNIQUE: Multiplanar, multisequence MR images of the brain were obtained with and without intravenous contrast enhancement (Omniscan 13 cc). FINDINGS: HEMORRHAGE: None DWI: No evidence of an acute or early subacute infarction. BRAIN PARENCHYMA: A ring-enhancing lesion is identified at the right temporal lobe anterior pole corresponding to the lucent lesion in head CT also performed 07/02/2018 at the same location. It measures 3.4 x 3.9 x 3.9 cm off gadolinium-enhanced T1 weighted imaging (transverse by anteroposterior by superoinferior dimensions). Extensive vasogenic edema is identified throughout the right temporal lobe extending into the right internal and external capsules with leftward midline shift identified approximately 1.2 cm, potentially slightly increased in the interval. Right lateral ventricle is effaced as well as the majority of sulci at the right cerebral hemisphere. Some small sub cm cystic component identified at the lateral and anterior extent of this cyst. A solitary cystic component is also seen infero posteriorly. Consider abscess or potential cystic neoplasm. Tiny chronic lacunes are seen at the left jody inferiorly extending into the left cerebellar peduncle once again. No definite additional parenchymal findings above or below the tentorium. VENTRICLES: No hydrocephalus. See brain parenchyma section as above as well. CRANIUM: Unremarkable. ORBITS: Grossly unremarkable. PARANASAL SINUSES/MASTOIDS: Clear VASCULAR SYSTEM: Skull base flow voids intact. OTHER FINDINGS: None . IMPRESSION: 3.9 cm ring-enhancing anterior right temporal lobe complex cystic lesion is identified with extensive vasogenic edema associated with 1.2 cm leftward midline shift identified. This could reflect slight increase in mass effect. Consider abscess though cystic neoplasm is difficult to completely exclude. Left pontine/cerebellar peduncle are chronic lacunes reiterated. Findings preliminarily reviewed and discussed with Dr. Mae with written down and read back verification 07/02/2018 1:10 p.m..
[2018-07-02 16:28] VITALS: BP 121/73; PULSE 65; RESP 20; O2SAT 96
--- NOTE | 2018-07-02 21:03 | CARD ---
APPROVED REPORT Date of service: 07/02/2018 EKG Measurement Heart [id number] <Conclusion> Sinus bradycardia with sinus arrhythmia Nonspecific T wave abnormality Abnormal ECG
== END 2018-07-02 16:25 | disposition short-term general hospital (02) ==
LOC: H.ER 08:40
DX: G93.9 Disorder of brain, unspecified (principal); F17.200 Nicotine dependence, unspecified, uncomplicated
CPT/HCPCS: 70450; 70553; 80053; 85025; 85610; 93005; 96374; 99285; A9579; J1100

== ENCOUNTER 2018-08-27 13:16 | Emergency (ER) | payer MEDICAID ==
[2018-08-27 13:18] VITALS: BMI 26.4
[2018-08-27 13:41] VITALS: BP 117/72; PULSE 68; RESP 18; TEMP 98.1
--- NOTE | 2018-08-27 14:47 | ED PDOC ---
HPI: Headache Time Seen by Provider: 08/27/18 14:16 Chief Complaint (Nursing): Headache Chief Complaint (Provider): Headache History Per: Patient History/Exam Limitations: no limitations Onset/Duration Of Symptoms: Days (2) Current Symptoms Are (Timing): Still Present Quality: "Pain" Preceeding Symptoms: denies: Visual Disturbances, Known Migraine Symptoms Additional History Per: Patient Additional Complaint(s): 53yo male, with recent history of a craniotomy 7 weeks ago ([facility]), comes to ER reporting a headache since yesterday. patient states after his procedure, he was taking oxycodone, tramadol and keppra but reports he ran out of his pain relief medication 3 days ago. Patient additionally states he has a scheduled follow up with neurologist Dr. Christopher Adams on 09/06. He reports associated nausea and dizziness, but denies any vomiting, weakness, numbness, gait changes, vision changes. No additional complaints. Of note, patient states in the weeks between his craniotomy and his headache from yesterday, he has not had such symptoms; he denies any thunderclap sensation or sudden onset headache, and states its not the worst of his life. Patient also states he was seen in another ER yesterday, and was discharged home. PMD: None Past Medical History Reviewed: Historical Data, Nursing Documentation, Vital Signs Vital Signs: Last Vital Signs Temp 98.1 F 08/27/18 13:38 Pulse 68 08/27/18 13:38 Resp 18 08/27/18 13:38 BP 117/72 08/27/18 13:38 Pulse Ox - Surgical History Other surgeries: craniotomy - Family History Family History: States: Unknown Family Hx - Home Medications Home Medications: Ambulatory Orders Medication Instructions Recorded Levetiracetam [Keppra] 500 mg PO BID #60 tablet 08/27/18 traMADol [Ultram] 50 mg PO TID PRN #15 tab 08/27/18 - Allergies Allergies/Adverse Reactions: Allergies Allergy/AdvReac Type Severity Reaction Status Date / Time No Known Allergies Allergy Verified 07/02/18 08:57 Review of Systems ROS Statement: Except As Marked, All Systems Reviewed And Found Negative Constitutional: Negative for: Fever, Chills, Weakness Eyes: Negative for: Vision Change Gastrointestinal: Positive for: Nausea. Negative for: Vomiting Neurological: Positive for: Headache, Dizziness. Negative for: Weakness, Numbness Physical Exam - Reviewed Nursing Documentation Reviewed: Yes Vital Signs Reviewed: Yes - Physical Exam Appears: Positive for: Non-toxic, No Acute Distress Head Exam: Positive for: ATRAUMATIC, NORMAL INSPECTION (right sided craniotomy scar, clean and well healing; no dehissence, discharge, erythema or tenderness noted.), NORMOCEPHALIC Skin: Positive for: Normal Color, Warm Eye Exam: Positive for: EOMI, PERRL ENT: Positive for: TM Is/Are (clear). Negative for: Pharyngeal Erythema, Tonsillar Exudate, Tonsillar Swelling Neck: Positive for: Normal, Painless ROM, Supple Cardiovascular/Chest: Positive for: Regular Rate, Rhythm. Negative for: Tachycardia Respiratory: Positive for: Normal Breath Sounds. Negative for: Wheezing, Respiratory Distress Pulses-Radial (L): 2+ Pulses-Radial (R): 2+ Gastrointestinal/Abdominal: Positive for: Normal Exam Back: Positive for: Normal Inspection. Negative for: Vertebral Tenderness Extremity: Positive for: Normal ROM Neurological/Psych: Positive for: Awake, Alert, Normal Tone, Oriented (x 3), Gait (steady). Negative for: Motor/Sensory Deficits, Facial Droop - Laboratory Results Result Diagrams: 08/27/18 15:20 08/27/18 15:20 Medical Decision Making Medical Decision Making: Impression: Headache s/p craniotomy Plan: -- Labs -- CT head -- Tramadol 50mg PO 1640 CT Head IMPRESSION: Prior right craniotomy reiterated as well as 3.3 cm right fronto temporal cystic mass potentially unchanged in size in terms of the cyst however an underlying soft tissue component is not excluded and is not defined in this exam. Leftward midline shift is increased from 1.0-1.5 cm with extensive related vasogenic edema increased more so at the right frontal and temporal lobe and deep central brain anatomy as per above. Mass effect at the right cerebral peduncle is likely increased though the basilar cisterns remain patent. Upper brainstem is shifted slightly toward the left. No definite intracranial hemorrhage or new lesion appreciable at this time. Neuro surgical consultation recommended. [address] Arita who recommends follow up with his neurosurgeon and neurologist outpatient. Scribe Attestation: Documented by Cheryl Wilson acting as a scribe for Arnoldo Curiel MD. Provider Attestation: All medical record entries made by the Scribe were at my direction and personally dictated by me. I have reviewed the chart and agree that the record accurately reflects my personal performance of the history, physical exam, medical decision making, and the department course for this patient. I have also personally directed, reviewed, and agree with the discharge instructions and disposition. Disposition - Clinical Impression Clinical Impression: Headache, Brain mass - Patient ED Disposition Is Patient to be Admitted: No Doctor Will See Patient In The: Office Counseled Patient/Family Regarding: Studies Performed, Diagnosis, Need For Followup - Disposition Disposition: Routine/Home Disposition Time: 17:13 Condition: GOOD Additional Instructions: Follow up with your neurosurgeon in 2 days. Prescriptions: Levetiracetam [Keppra] 500 mg PO BID #60 tablet traMADol [Ultram] 50 mg PO TID PRN #15 tab PRN Reason: Pain, Severe (8-10) Instructions: Headache, Adult Forms: [facility] (Faroese) Print Language: BENGALI
[2018-08-27 15:33] LABS: BASO # 0.1 K/uL (0.0-0.2); BASO % 0.5 % (0.0-2.0); EOS # 1.6 K/uL (0.0-0.7); EOS % 13.3 % (0.0-4.0); HEMOGLOBIN 13.6 g/dL (12.0-18.0); LYMPH # 1.8 K/uL (1.0-4.3); MEAN CELL VOLUME 88.8 fl (80.0-94.0); MEAN CORPUSCULAR HEMOGLOBIN 28.9 pg (27.0-31.0); MEAN CORPUSCULAR HGB CONC 32.6 g/dL (33.0-37.0); MEAN PLATELET VOLUME 7.7 fl (7.2-11.7); MONO # 0.9 K/uL (0.0-0.8); MONO % 7.5 % (0.0-10.0); NEUT # 7.7 K/uL (1.8-7.0); NEUT % 63.7 % (50.0-75.0); RBC 4.71 Mil/uL (4.40-5.90); RED CELL DISTRIBUTION WIDTH 13.8 % (11.5-14.5); WHITE BLOOD COUNT 12.1 K/uL (4.8-10.8)
[2018-08-27 15:43] LABS: INR 1.1
[2018-08-27 15:46] LABS: PARTIAL THROMBOPLASTIN TIME 36.5 Seconds (25.6-37.1)
[2018-08-27 15:50] LABS: BLOOD UREA NITROGEN 18 mg/dl (9-20); CALCIUM 9.6 mg/dL (8.4-10.2); GFR NON-AFRICAN AMERICAN > 60
--- NOTE | 2018-08-27 16:28 | CT ---
Date of service: 08/27/2018 PROCEDURE: CT HEAD WITHOUT CONTRAST. HISTORY: headache s/p craniotomy; brain tumor. COMPARISON: Noncontrast head CT 07/02/2018. TECHNIQUE: Axial computed tomography images were obtained through the head/brain without intravenous contrast. Radiation dose: Total exam DLP = 910.0 mGy-cm. This CT exam was performed using one or more of the following dose reduction techniques: Automated exposure control, adjustment of the mA and/or kV according to patient size, and/or use of iterative reconstruction technique. FINDINGS: HEMORRHAGE: No intracranial hemorrhage. BRAIN: There is a persistent but stable appearing low-density lesion at the right frontotemporal region once again evident measuring 3.3 x 3.1 cm in this patient status post right frontotemporal craniotomy. A small 0.6 cm cyst is seen inferomedial to the dominant cystic lesion abutting it in the interval. Leftward midline shift is increased to 1.5 cm. Vasogenic edema has increased to further involve the right frontal lobe with no interval change in edema involving the internal and external capsules right side as well as white matter at the right temporal lobe nearly diffusely with only limited portion the right temporal lobe unaffected. Right lateral ventricle remains effaced with a stable appearing left lateral ventricle. Right cerebral peduncle remains impacted the upper brainstem borderline shifted toward the left though the basilar cisterns remain patent. Bilateral basal ganglia calcifications are unchanged. Posterior fossa contents appear grossly remarkable only for chronic lacune at the left cerebellar peduncle and an additional smaller lacune at the left jody. VENTRICLES: Unremarkable. No hydrocephalus. CALVARIUM: Unremarkable. PARANASAL SINUSES: Unremarkable as visualized. No significant inflammatory changes. MASTOID AIR CELLS: Unremarkable as visualized. No inflammatory changes. OTHER FINDINGS: None. IMPRESSION: Prior right craniotomy reiterated as well as 3.3 cm right fronto temporal cystic mass potentially unchanged in size in terms of the cyst however an underlying soft tissue component is not excluded and is not defined in this exam. Leftward midline shift is increased from 1.0-1.5 cm with extensive related vasogenic edema increased more so at the right frontal and temporal lobe and deep central brain anatomy as per above. Mass effect at the right cerebral peduncle is likely increased though the basilar cisterns remain patent. Upper brainstem is shifted slightly toward the left. No definite intracranial hemorrhage or new lesion appreciable at this time. Neuro surgical consultation recommended. Findings reviewed and discussed with Dr. Curiel with written down and read back verification 08/27/2018 4:15 p.m..
== END 2018-08-27 18:28 | disposition home or self-care (01) ==
LOC: H.ER 13:16
DX: R51 Headache (principal); G93.9 Disorder of brain, unspecified